=== PATIENT | male | born 1980 | race African-American/Black ===

== ENCOUNTER 2017-03-09 07:16 | Day surgery (SDC) | payer OTHER ==
[~2017-03-09] VITALS: Ht 180.3 cm; Wt 66.4 kg
[~2017-03-09 07:16] MED LIST: BUPIVACAINE 0.5 % 5 MG/1 ML MPF 30ML VIAL ONE; CEFAZOLIN 2000MG IV PUSH 10 ML IV SCH
[2017-03-09 07:34] VITALS: BP 106/54; PULSE 45; TEMP 36.6; O2SAT 99; Ht 180.3 cm; Wt 66.4 kg
[2017-03-09] MEDS ORDERED: EpHEDrine SULFATE INJ 50 MG/ML AMP IV PRN (09:00)
[2017-03-09] MEDS ORDERED: ONDANSETRON INJ 2 MG/ML 2 ML VIAL IV PRN (09:00)
[2017-03-09] MEDS ORDERED: ATROPINE SULFATE 0.1 MG/ML 5ML SYR IV PRN (09:00)
[2017-03-09] MEDS ORDERED: FENTANYL CITRATE INJ 50 MCG/1 ML 2 ML VIAL IV PRN (09:00)
[2017-03-09] MEDS ORDERED: MIDAZOLAM HCL 1 MG/ML 2ML VIAL ONE (09:15)
[2017-03-09] MEDS ORDERED: FENTANYL CITRATE INJ 50 MCG/1 ML 2 ML VIAL ONE (09:15)
[2017-03-09] MEDS ORDERED: PROPOFOL IV EMULSION 10 MG/ML 20 ML VIAL IV ONE (09:15)
[2017-03-09] MEDS ORDERED: ONDANSETRON INJ 2 MG/ML 2 ML VIAL ONE (09:15)
[2017-03-09] MEDS ORDERED: LIDOCAINE HCL 2% 2 ML VIAL (20MG/ML) ONE (09:15)
[2017-03-09] MEDS ORDERED: DEXAMETHASONE SOD INJ 4 MG/ML VIAL ONE (09:15)
--- NOTE | 2017-03-09 09:15 | History & Physical Bridge Note ---
H&P Re-Evaluation Bridge Note: I have examined the patient, reviewed the History & Physical and in the interval since the performance of the History & Physical I have noted the following changes of clinical significance: No changes noted
--- NOTE | 2017-03-09 09:31 | [facility] Operative Report ---
Operative Report Operative Date Mar 09, 2017. Pre-Operative Diagnosis Right Hydrocele Post-Operative Diagnosis Same Procedure(s) Performed Right Hydrocelectomy Surgeon Juan Machine Heddle Cleaner Surgeon(s) None Estimated Blood Loss 20 cc Findings Large right hydrocele. Fluids See Anes Specimens Hydrocele Sac Anesthesia General Complication(s) None Disposition Recovery Room / PACU Indications Right hydrocele bothersome and causing issues. Risks and benefits discussed at length and patient agreeable to proceed. Consent signed. Description of Procedure Patient was consented and brought back to the operating room. Patient was placed under anesthesia in the supine position. Patient was prepped and draped in the regular sterile fashion. A time out was completed. With the timeout completed, a marking was made at the scrotal raphe and the skin was anesthetized with local anesthetic. An incision was made into the skin. Bovie electrocautery was utilized to open the subcutaneous tissues. The large right hydrocele was delivered out of the scrotum. At this point, the cord structures were identified. The hydrocele sac was opened and drained of fluid. The excess tissue was removed and sent for pathologic analysis. The area and testicle was examined. The residual hydrocele tissue was over sewn behind the testicle. At this point, the scrotal wall was examined and all bleeding controlled. The testicle was delivered back into the scrotum and the area irrigated. The dartos tissues were then closed with a running suture. A 4 -0 monocryl running suture was used to close the skin. Skin glue was placed. The patient was cleaned and scrotal fluffs/support were placed. The patient was aroused from anesthesia and transferred to the pacu in stable condition having tolerated the procedure well with no complications. I was present and participated in all aspects of the procedure. The patient will be monitored in the PACU until transferred. I attest to the content of the Intraoperative Record and any orders documented therein. Any exceptions are noted below.
--- NOTE | 2017-03-09 09:39 | Discharge Instructions ---
Discharge Instructions Date of Service Mar 09, 2017. Admission Reason for Admission: Hydrocele Discharge Discharge Diagnosis / Problem: Right Hydrocele Discharge Goals Goal(s): Decrease discomfort, Improve function Activity Recommendations Activity Limitations: per Instructions/Follow-up section Lifting Limitations: no more than 10 pounds Exercise/Sports Limitations: gradually increase as tolerated Shower/Bathe: tomorrow 1-2 weeks of no heavy lifting or overactivity. Wear scrotal support and monitor. Elevate scrotum when laying flat. . Instructions / Follow-Up Instructions / Follow-Up Follow up in 1-2 weeks for wound check. Okay to shower in 24 hours. No overactivity or heavy lifting for 1-2 weeks. Slowly increase activity after that. Wash area 3-4 times daily with warm soapy water. No scrubbing. No soaking or baths. Okay to shower. Monitor for fever or swelling. Ice to wound 20 mins on and 20 mins off to help with pain. Okay to take tylenol or NSAID or pain medication for control. Current Hospital Diet Hospital Diet(s): Regular Diet Discharge Diet Recommended Diet: Regular Diet Procedures Procedures Performed: Right Hydrocelectomy Pending Studies Studies pending at discharge: no Medical Emergencies . Who to Call and When: Medical Emergencies: If at any time you feel your situation is an emergency, please call 911 immediately. . Non-Emergent Contact Non-Emergency issues call your: Primary Care Provider, Urologist Call Non-Emergent contact if: you have a fever, temperature is above 101, temperature is above 101.5, your pain is not controlled, your pain is worsening , wound has increased drainage, wound has increased redness, wound has increased pain . . "Provider Documentation" section prepared by Eusebio Martinez,. . VTE Core Measure Inpt VTE Proph given/why not?: Lui Lew, SCD's
[2017-03-09] MEDS ORDERED: KETOROLAC TROMETHAMINE 30 MG/ML VIAL ONE (10:03)
[2017-03-09] MEDS ORDERED: EpHEDrine SULFATE 50MG/5ML SYR ONE (10:04)
[2017-03-09] MEDS: BACITRACIN OINT 15 GM TUBE ONE ×2 (10:23→10:46)
[2017-03-09] MEDS ORDERED: OXYC7.5T65 PO (11:22)
[2017-03-09] MEDS ORDERED: SULF800T23 PO (11:22)
[2017-03-09] MEDS ORDERED: OXYCODONE/ACETAMINOPHEN 7.5-325 TAB PO PRN (11:30)
[2017-03-09 12:00] VITALS: BP 124/63; PULSE 44; TEMP 36.5; O2SAT 99
--- NOTE | 2017-03-09 12:22 | Anesthesiology Progress Note ---
Anesthesia Post Op Note Date & Time Mar 09, 2017 at 12:22 Vital Signs Pain Intensity: 0 Vital Signs Past 12 Hours Date Time Temp Pulse Resp B/P (MAP) Pulse Ox O2 Delivery O2 Flow Rate FiO2 03/09/17 12:00 36.5 44 18 124/63 99 Room Air 03/09/17 11:45 36.4 49 14 130/81 100 Room Air 03/09/17 11:35 63 22 122/76 93 Room Air 03/09/17 11:25 124 19 121/67 99 Oxymask 10 03/09/17 11:15 52 20 132/83 100 Oxymask 10 03/09/17 11:09 36.1 88 19 152/82 100 Oxymask 10 03/09/17 07:34 36.6 45 16 106/54 (71) 99 Room Air Notes Mental Status: alert / awake / arousable, participated in evaluation Pt Amnestic to Procedure: Yes Nausea / Vomiting: adequately controlled Pain: adequately controlled Airway Patency, RR, SpO2: stable & adequate BP & HR: stable & adequate Hydration State: stable & adequate Anesthetic Complications: no major complications apparent
[2017-03-09 12:30] VITALS: BP 138/67; PULSE 42; O2SAT 100
[2017-03-09 13:00] VITALS: BP 130/63; PULSE 45; TEMP 36.5; O2SAT 100
== END 2017-03-09 13:00 | disposition home or self-care (01) ==
LOC: C.ACU 07:16
PROVIDERS: ATTEND Urology
DX: N43.3 Hydrocele, unspecified (principal); B19.20 Unspecified viral hepatitis C without hepatic coma; Z87.442 Personal history of urinary calculi; Z68.20 Body mass index [BMI] 20.0-20.9, adult